=== PATIENT | female | born 1960 | race Caucasian/White ===

== ENCOUNTER 2017-04-08 07:11 | Outpatient (CLI) | payer OTHER ==
[2017-04-08 09:15] LABS: #Basophils 0.1 thou/uL (0.0-0.2); #Lymphocytes 1.6 thou/uL (1.20-3.40); #Monocytes 0.5 thou/uL (0.11-0.59); %Basophils 1.2 % (0.0-1.0); %Lymphocytes 30.7 % (21.0-51.0); %Neutrophils 58.1 % (42.0-75.0); Hemoglobin 11.5 g/dL (12.0-16.0); Mean Corpuscular Hemoglobin 30.9 pg (27.0-31.0); Mean Corpuscular Volume 90.8 fl (81.0-99.0); Mean Platelet Volume 9.5 fL (7.4-10.4); Platelet Count 165 thou/uL (130-400); Red Blood Cell (RBC) Count 3.71 mill/uL (4.20-5.40); White Blood Cell (WBC) Count 5.1 thou/uL (4.8-10.8)
[2017-04-08 09:38] LABS: ALT (SGPT) 23 U/L (8-55); AST (SGOT) 19 U/L (5-34); Albumin 3.9 g/dL (3.5-5.0); Alkaline Phosphatase 85 U/L (40-150); Anion Gap 13 mmol/L (10-20); BUN (Urea Nitrogen) 17 mg/dL (9.8-20.1); Bilirubin, Total 0.5 mg/dL (0.2-1.2); Calc. Creatinine Clearance 0 mL/min (70-130); Calcium 8.9 mg/dL (7.8-10.44); Carbon Dioxide 23 mmol/L (22-29); Chloride 111 mmol/L (98-107); Estimated GFR-MDRD 76; Globulin 2.5 g/dL (2.4-3.5); Glucose 104 mg/dL (70-105); Potassium 4.6 mmol/L (3.5-5.1); Protein, Total 6.4 g/dL (6.0-8.3); Sodium 142 mmol/L (136-145)
[2017-04-08 10:01] LABS: Free T4 (Free Thyroxine) 1.63 ng/dL (0.70-1.48); Thyroid Stimulating Hormone Less than 0.0025 uIU/mL (0.35-4.94); Vitamin D, 25 Hydroxy 32.9 ng/ml (> 30.0)
== END 2017-04-08 07:12 | disposition home or self-care (01) ==
LOC: MADLAB 07:11
PROVIDERS: ATTEND Internal Medicine Endocrinology, Diabetes & Metabolism
DX: E03.9 Hypothyroidism, unspecified (principal); E78.2 Mixed hyperlipidemia; E55.9 Vitamin D deficiency, unspecified; E66.3 Overweight; R53.83 Other fatigue
CPT/HCPCS: 36415; 80053; 82306; 84439; 84443; 84481; 85025

== ENCOUNTER 2020-07-25 06:42 | Outpatient (CLI) | payer OTHER, BC ==
[2020-07-25 07:03] LABS: #Basophils 0.1 thou/uL (0.0-0.2); #Eosinphils 0.1 thou/uL (0.0-0.7); #Lymphocytes 2.5 thou/uL (1.20-3.40); #Monocytes 0.4 thou/uL (0.11-0.59); #Neutrophils 3.4 thou/uL (1.40-6.50); %Basophils 1.2 % (0.0-1.0); %Eosinophils 1.8 % (0.0-10.0); %Lymphocytes 37.9 % (21.0-51.0); %Monocytes 6.6 % (0.0-10.0); %Neutrophils 52.5 % (42.0-75.0); Hemoglobin 11.8 g/dL (12.0-16.0); Mean Corpuscular HGB CONC 32.8 g/dL (32.0-36.0); Mean Corpuscular Hemoglobin 29.1 pg (27.0-31.0); Mean Corpuscular Volume 88.9 fL (78.0-98.0); Mean Platelet Volume 9.9 fL (7.4-10.4); Platelet Count 202 thou/uL (130-400); RBC Distribution Width 12.3 % (11.5-14.5); Red Blood Cell (RBC) Count 4.07 mill/uL (4.20-5.40); White Blood Cell (WBC) Count 6.5 thou/uL (4.8-10.8)
[2020-07-25 07:22] LABS: ALT (SGPT) 12 U/L (8-55); AST (SGOT) 11 U/L (5-34); Alkaline Phosphatase 109 U/L (40-110); Anion Gap 18 mmol/L (10-20); BUN (Urea Nitrogen) 13 mg/dL (9.8-20.1); Bilirubin, Total 0.6 mg/dL (0.2-1.2); Calc. Creatinine Clearance 0 mL/min (70-130); Calcium 8.4 mg/dL (7.8-10.44); Carbon Dioxide 25 mmol/L (22-29); Cardiac Risk 4.1 (Less than 4.5); Chloride 104 mmol/L (98-107); Cholesterol 159 mg/dl (< 200 Desired); Estimated GFR-MDRD 72; Globulin 2.6 g/dL (2.4-3.5); Glucose 97 mg/dL (70-105); HDL Cholesterol 39 mg/dL (>60 Neg Risk); LDL Cholesterol, Calculated 91 mg/dL; Potassium 3.3 mmol/L (3.5-5.1); Protein, Total 6.6 g/dL (6.0-8.3); Sodium 144 mmol/L (136-145); Triglycerides 144 mg/dL (Less than 150)
[2020-07-25 12:45] LABS: Bilirubin Negative (Negative); Blood, Urine Trace (Negative); Glucose, Urine (Dipstick) Negative (Negative); Ketone, Urine Negative (Negative); Leukocyte Negative (Negative); Nitrite Negative (Negative); Protein, Urine (Dipstick) Negative (Neg-Trace); Urobilinogen 0.2 mg/dL (Less than 2)
[2020-07-25 12:46] LABS: Clarity Hazy (Clear)
[2020-07-25 13:01] LABS: Bacteria/HPF Rare-Few HPF (None Seen); Mucous/LPF 2+ LPF (<2+); RBC/HPF 0-3 HPF (0-3); WBC/HPF None Seen HPF (0-3)
[2020-07-25 14:49] LABS: Hemoglobin A1c 4.8 % (4.0-6.0)
== END 2020-07-25 06:43 | disposition home or self-care (01) ==
LOC: MADLAB 06:42
PROVIDERS: ATTEND Family Medicine
DX: Z00.00 Encounter for general adult medical examination without abnormal findings (principal); E03.9 Hypothyroidism, unspecified; R73.09 Other abnormal glucose
CPT/HCPCS: 36415; 80050; 80061; 81003; 81015; 82670; 83036

== ENCOUNTER 2021-03-29 08:36 | Outpatient (CLI) | payer OTHER, BC ==
[2021-03-29 09:18] LABS: ALT (SGPT) 14 U/L (8-55); AST (SGOT) 13 U/L (5-34); Albumin 4.3 g/dL (3.5-5.0); Alkaline Phosphatase 106 U/L (40-110); Anion Gap 17 mmol/L (10-20); BUN (Urea Nitrogen) 18 mg/dL (9.8-20.1); Bilirubin, Total 0.4 mg/dL (0.2-1.2); Calc. Creatinine Clearance 0 mL/min (70-130); Calcium 9.1 mg/dL (7.8-10.44); Carbon Dioxide 25 mmol/L (22-29); Cardiac Risk 3.5 (Less than 4.5); Chloride 104 mmol/L (98-107); Cholesterol 149 mg/dl (< 200 Desired); Globulin 2.6 g/dL (2.4-3.5); Glucose 104 mg/dL (70-105); HDL Cholesterol 42 mg/dL (>60 Neg Risk); LDL Cholesterol, Calculated 89 mg/dL; Potassium 3.5 mmol/L (3.5-5.1); Protein, Total 6.9 g/dL (6.0-8.3); Sodium 142 mmol/L (136-145); Triglycerides 88 mg/dL (Less than 150)
[2021-03-29 10:11] LABS: #Basophils 0.1 thou/uL (0.0-0.2); #Eosinphils 0.1 thou/uL (0.0-0.7); #Monocytes 0.4 thou/uL (0.11-0.59); #Neutrophils 3.9 thou/uL (1.40-6.50); %Basophils 1.1 % (0.0-1.0); %Eosinophils 0.9 % (0.0-10.0); %Lymphocytes 31.3 % (21.0-51.0); %Monocytes 6.1 % (0.0-10.0); %Neutrophils 60.6 % (42.0-75.0); Mean Corpuscular HGB CONC 32.1 g/dL (32.0-36.0); Mean Corpuscular Hemoglobin 29.9 pg (27.0-31.0); Mean Platelet Volume 10.6 fL (7.4-10.4); Platelet Count 179 thou/uL (130-400); RBC Distribution Width 11.9 % (11.5-14.5); Red Blood Cell (RBC) Count 4.02 mill/uL (4.20-5.40); White Blood Cell (WBC) Count 6.4 thou/uL (4.8-10.8)
[2021-03-29 20:05] LABS: Free T4 (Free Thyroxine) 1.67 ng/dL (0.70-1.48)
[2021-03-29 23:23] LABS: Vitamin D, 25 Hydroxy 47.3 ng/ml (> 30.0)
== END 2021-03-29 08:37 | disposition home or self-care (01) ==
LOC: MADLAB 08:36
PROVIDERS: ATTEND Internal Medicine Endocrinology, Diabetes & Metabolism
DX: E03.9 Hypothyroidism, unspecified (principal); E55.9 Vitamin D deficiency, unspecified; E78.2 Mixed hyperlipidemia; E27.9 Disorder of adrenal gland, unspecified; R53.83 Other fatigue
CPT/HCPCS: 36415; 80053; 80061; 82306; 82627; 84439; 84443; 84481; 85025

== ENCOUNTER 2021-07-12 06:48 | Outpatient (CLI) | payer OTHER, BC ==
[2021-07-12 07:27] LABS: #Basophils 0.1 thou/uL (0.0-0.2); #Eosinphils 0.2 thou/uL (0.0-0.7); #Lymphocytes 2.3 thou/uL (1.20-3.40); #Monocytes 0.4 thou/uL (0.11-0.59); #Neutrophils 3.5 thou/uL (1.40-6.50); %Basophils 1.4 % (0.0-1.0); %Eosinophils 2.9 % (0.0-10.0); %Lymphocytes 35.4 % (21.0-51.0); %Monocytes 5.7 % (0.0-10.0); %Neutrophils 54.7 % (42.0-75.0); Hemoglobin 11.8 g/dL (12.0-16.0); Mean Corpuscular HGB CONC 32.1 g/dL (32.0-36.0); Mean Corpuscular Hemoglobin 29.2 pg (27.0-31.0); Mean Corpuscular Volume 90.9 fL (78.0-98.0); Mean Platelet Volume 9.5 fL (7.4-10.4); Platelet Count 199 thou/uL (130-400); RBC Distribution Width 11.3 % (11.5-14.5); Red Blood Cell (RBC) Count 4.05 mill/uL (4.20-5.40); White Blood Cell (WBC) Count 6.4 thou/uL (4.8-10.8)
[2021-07-12 07:50] LABS: ALT (SGPT) 19 U/L (8-55); AST (SGOT) 16 U/L (5-34); Albumin 4.3 g/dL (3.5-5.0); Alkaline Phosphatase 86 U/L (40-110); Anion Gap 13 mmol/L (10-20); BUN (Urea Nitrogen) 13 mg/dL (9.8-20.1); Bilirubin, Total 0.7 mg/dL (0.2-1.2); Calc. Creatinine Clearance 0 mL/min (70-130); Calcium 9.6 mg/dL (7.8-10.44); Carbon Dioxide 28 mmol/L (22-29); Cardiac Risk 4.2 (Less than 4.5); Chloride 104 mmol/L (98-107); Cholesterol 177 mg/dl (< 200 Desired); Globulin 2.9 g/dL (2.4-3.5); Glucose 96 mg/dL (70-105); HDL Cholesterol 42 mg/dL (>60 Neg Risk); LDL Cholesterol, Calculated 112 mg/dL; Protein, Total 7.2 g/dL (6.0-8.3); Sodium 142 mmol/L (136-145); Triglycerides 113 mg/dL (Less than 150)
[2021-07-12 10:07] LABS: Potassium 2.7 mmol/L (3.5-5.1)
[2021-07-12 11:56] LABS: Free T4 (Free Thyroxine) 1.33 ng/dL (0.70-1.48)
== END 2021-07-12 06:49 | disposition home or self-care (01) ==
LOC: MADLAB 06:48
PROVIDERS: ATTEND Internal Medicine Endocrinology, Diabetes & Metabolism
DX: E03.9 Hypothyroidism, unspecified (principal); E55.9 Vitamin D deficiency, unspecified; E27.9 Disorder of adrenal gland, unspecified; E78.2 Mixed hyperlipidemia; R53.83 Other fatigue
CPT/HCPCS: 36415; 80053; 80061; 82306; 82627; 84439; 84443; 84481; 85025

== ENCOUNTER 2021-09-30 18:23 | Emergency (ER) | payer OTHER, BC ==
[2021-09-30] MEDS ORDERED: Iopamidol 370 76% 100 ML VIAL IV ONE (18:24)
[2021-09-30 18:59] LABS: #Basophils 0.1 thou/uL (0.0-0.2); #Eosinphils 0.1 thou/uL (0.0-0.7); #Lymphocytes 1.6 thou/uL (1.20-3.40); #Neutrophils 14.6 thou/uL (1.40-6.50); %Basophils 0.5 % (0.0-1.0); %Eosinophils 0.3 % (0.0-10.0); %Lymphocytes 9.1 % (21.0-51.0); %Monocytes 5.7 % (0.0-10.0); %Neutrophils 84.4 % (42.0-75.0); Hemoglobin 15.2 g/dL (12.0-16.0); Mean Corpuscular HGB CONC 32.1 g/dL (32.0-36.0); Mean Corpuscular Hemoglobin 28.7 pg (27.0-31.0); Mean Corpuscular Volume 89.2 fL (78.0-98.0); Mean Platelet Volume 9.7 fL (7.4-10.4); Platelet Count 281 thou/uL (130-400); RBC Distribution Width 11.8 % (11.5-14.5); Red Blood Cell (RBC) Count 5.32 mill/uL (4.20-5.40); White Blood Cell (WBC) Count 17.3 thou/uL (4.8-10.8)
[2021-09-30] MEDS ORDERED: Lactated Ringer's 1,000 ML ONE (19:13)
[2021-09-30] MEDS ORDERED: Ondansetron PF 4 MG/2 ML Vial ONE (19:13)
[2021-09-30 19:18] LABS: ALT (SGPT) 25 U/L (8-55); AST (SGOT) 16 U/L (5-34); Albumin 4.7 g/dL (3.5-5.0); Alkaline Phosphatase 112 U/L (40-110); Anion Gap 15 mmol/L (10-20); BUN (Urea Nitrogen) 25 mg/dL (9.8-20.1); Bilirubin, Total 0.7 mg/dL (0.2-1.2); Calc. Creatinine Clearance 0 mL/min (70-130); Calcium 9.5 mg/dL (7.8-10.44); Carbon Dioxide 29 mmol/L (22-29); Chloride 102 mmol/L (98-107); Glucose 136 mg/dL (70-105); Lipase 23 U/L (8-78); Magnesium 2.9 mg/dL (1.6-2.6); Protein, Total 7.7 g/dL (6.0-8.3); Sodium 143 mmol/L (136-145)
[2021-09-30 19:21] LABS: Potassium 2.6 mmol/L (3.5-5.1)
[2021-09-30] MEDS ORDERED: Prochlorperazine 10 MG/2 ML VIAL ONE (19:35)
[2021-09-30] MEDS ORDERED: Potassium Chloride 10 MEQ/100 ML PREMIX BAG ONE (20:21)
[2021-09-30] MEDS ORDERED: NS 0.9% w/ 40 MEQ KCL 0 ML IV ONE (20:31)
[2021-09-30] MEDS ORDERED: NS 0.9% w/ 40 MEQ KCL 1,000 ML IV ONE (20:33)
[2021-09-30] MEDS ORDERED: Promethazine HCl 25 MG/ML VIAL ONE (20:34)
[2021-10-01] MEDS ORDERED: Potassium Chloride 20 MEQ TAB ONE (01:19)
== END 2021-10-01 02:15 | disposition short-term general hospital (02) ==
LOC: MADERS 18:23
DX: E87.6 Hypokalemia (principal); K52.9 Noninfective gastroenteritis and colitis, unspecified; K63.89 Other specified diseases of intestine; G43.909 Migraine, unspecified, not intractable, without status migrainosus; E03.9 Hypothyroidism, unspecified; I10 Essential (primary) hypertension; Z87.891 Personal history of nicotine dependence
CPT/HCPCS: 36415; 74177; 80053; 83605; 83690; 83735; 85025; 96365; 96366; 96372; 96375; J0500; J0780; J2405; J2550; J3480; J7120; Q9967

== ENCOUNTER 2021-10-20 06:52 | Outpatient (CLI) | payer OTHER, BC ==
[2021-10-20 08:18] LABS: ALT (SGPT) 37 U/L (8-55); AST (SGOT) 21 U/L (5-34); Albumin 4.2 g/dL (3.5-5.0); Alkaline Phosphatase 101 U/L (40-110); Anion Gap 12 mmol/L (10-20); BUN (Urea Nitrogen) 14 mg/dL (9.8-20.1); Bilirubin, Total 0.6 mg/dL (0.2-1.2); Calc. Creatinine Clearance 0 mL/min (70-130); Calcium 9.3 mg/dL (7.8-10.44); Carbon Dioxide 27 mmol/L (22-29); Cardiac Risk 4.7 (Less than 4.5); Chloride 106 mmol/L (98-107); Cholesterol 163 mg/dl (< 200 Desired); Globulin 2.3 g/dL (2.4-3.5); Glucose 104 mg/dL (70-105); HDL Cholesterol 35 mg/dL (>60 Neg Risk); LDL Cholesterol, Calculated 102 mg/dL; Potassium 3.9 mmol/L (3.5-5.1); Protein, Total 6.5 g/dL (6.0-8.3); Sodium 141 mmol/L (136-145); Triglycerides 128 mg/dL (Less than 150)
[2021-10-20 08:26] LABS: #Eosinphils 0.1 thou/uL (0.0-0.7); #Monocytes 0.4 thou/uL (0.11-0.59); #Neutrophils 2.9 thou/uL (1.40-6.50); %Basophils 0.9 % (0.0-1.0); %Eosinophils 1.5 % (0.0-10.0); %Lymphocytes 36.7 % (21.0-51.0); %Neutrophils 53.9 % (42.0-75.0); Hemoglobin 11.1 g/dL (12.0-16.0); Mean Corpuscular HGB CONC 31.9 g/dL (32.0-36.0); Mean Corpuscular Hemoglobin 29.1 pg (27.0-31.0); Mean Corpuscular Volume 91.3 fL (78.0-98.0); Mean Platelet Volume 9.3 fL (7.4-10.4); Platelet Count 193 thou/uL (130-400); Red Blood Cell (RBC) Count 3.81 mill/uL (4.20-5.40); White Blood Cell (WBC) Count 5.4 thou/uL (4.8-10.8)
[2021-10-20 08:57] LABS: Thyroid Stimulating Hormone Less than 0.0025 uIU/mL (0.35-4.94)
[2021-10-20 17:09] LABS: Free T4 (Free Thyroxine) 1.42 ng/dL (0.70-1.48)
[2021-10-20 19:20] LABS: Vitamin D, 25 Hydroxy 46.7 ng/ml (> 30.0)
== END 2021-10-20 06:53 | disposition home or self-care (01) ==
LOC: MADLAB 06:52
PROVIDERS: ATTEND Internal Medicine Endocrinology, Diabetes & Metabolism
DX: E03.9 Hypothyroidism, unspecified (principal); E55.9 Vitamin D deficiency, unspecified; E78.2 Mixed hyperlipidemia; E87.6 Hypokalemia; E27.9 Disorder of adrenal gland, unspecified; R53.83 Other fatigue
CPT/HCPCS: 36415; 80053; 80061; 82306; 82627; 84439; 84443; 84481; 85025

== ENCOUNTER 2021-11-03 07:36 | Outpatient (CLI) | payer BC ==
[2021-11-03 08:40] LABS: SARS-CoV-2 NAA Rapid Test DETECTED (NotDetected)
== END 2021-11-03 07:37 | disposition home or self-care (01) ==
LOC: MADLAB 07:36
PROVIDERS: ATTEND Family Medicine
DX: U07.1 COVID-19 (principal)
CPT/HCPCS: U0002